=== PATIENT | female | born 1945 | race Caucasian/White ===

== ENCOUNTER → 2017-02-04 | Outpatient (CLI) | payer SELFPAY ==
[~2017-02-04] MED LIST: FEOSOL325 MG PO; FLEXERIL 10 MG10 MG PO; GLUCOPHAGE850 MG PO; KEFLEX500 MG PO; LASIX20 MG PO; LISINOPRIL5 MG PO; NEURONTIN 100100 MG PO; PIOGLITAZ-GLIM1 EACH PO; THERA-M CAPLET1 EAC1 PO; TYLENOL325 MG PO; VICTOZA 1818 MG/3 ML SC
[2017-02-04 10:15] LABS: BUN/CREATININE RATIO 21 (0-10)
== END ==
LOC: LAB 08:41
PROVIDERS: Family Medicine
DX: E11.319 Type 2 diabetes mellitus with unspecified diabetic retinopathy without macular edema (principal); E78.4 Other hyperlipidemia
CPT/HCPCS: 36415; 80053; 82043; 83036

== ENCOUNTER 2017-02-05 08:53 | Emergency (ER) | payer SELFPAY ==
[2017-02-05 12:45] LABS: HEMOGLOBIN 11.7 gm/dl (12.3-15.3); RED BLOOD COUNT 4.3 M/UL (4.00-5.10); WHITE BLOOD COUNT 3.1 K/UL (4.5-11.0)
[2017-02-05 13:10] LABS: BUN/CREATININE RATIO 23 (0-10)
== END 2017-02-05 20:20 | disposition home or self-care (01) ==
LOC: ER1 08:53 → ZEROF 18:08
PROVIDERS: Emergency Medicine
DX: J20.9 Acute bronchitis, unspecified (principal); E11.628 Type 2 diabetes mellitus with other skin complications; L03.116 Cellulitis of left lower limb; L03.115 Cellulitis of right lower limb; Z90.49 Acquired absence of other specified parts of digestive tract
CPT/HCPCS: 36415; 71020; 80053; 82550; 82553; 83690; 83874; 83880; 84484; 85025; 85610; 85730; 93005; 93970; 94664; 96365; 99284; J0696

== ENCOUNTER 2017-03-26 11:16 | Emergency (ER) | payer SELFPAY ==
[2017-03-26 12:41] LABS: HEMOGLOBIN 11.4 gm/dl (12.3-15.3); RED BLOOD COUNT 4.28 M/UL (4.00-5.10)
[2017-03-26 12:55] LABS: BUN/CREATININE RATIO 30 (0-10)
== END 2017-03-26 19:10 | disposition home or self-care (01) ==
LOC: ER1 11:16
PROVIDERS: Emergency Medicine
DX: E11.40 Type 2 diabetes mellitus with diabetic neuropathy, unspecified (principal); I89.0 Lymphedema, not elsewhere classified; Z79.899 Other long term (current) drug therapy
CPT/HCPCS: 36415; 73590; 75635; 80053; 85025; 86140; 87040; 93925; 93970; 96374; 96376; 99284; J2270; J7050; Q9963

== ENCOUNTER 2017-04-26 14:03 | Inpatient (IN) | payer MEDICARE, MEDICAID ==
[~2017-04-26] VITALS: Ht 157.5 cm; Wt 126.8 kg
[2017-04-26 15:11] LABS: HEMOGLOBIN 11.2 gm/dl (12.3-15.3); RED BLOOD COUNT 4.24 M/UL (4.00-5.10); WHITE BLOOD COUNT 4.3 K/UL (4.5-11.0)
[2017-04-26 15:34] LABS: BUN/CREATININE RATIO 28 (0-10)
[2017-04-27] MEDS ORDERED: NEURONTIN 100100 MG PO (05:09)
[2017-04-27] MEDS ORDERED: VICTOZA 1818 MG/3 ML SC (05:10)
[2017-04-27] MEDS ORDERED: PIOGLITAZ-GLIM1 EACH PO (05:11)
[2017-04-27] MEDS ORDERED: FLEXERIL 10 MG10 MG PO (05:12)
[2017-04-28 08:53] LABS: BUN/CREATININE RATIO 27 (0-10)
[2017-04-29 05:26] LABS: HEMOGLOBIN 9.6 gm/dl (12.3-15.3); RED BLOOD COUNT 3.75 M/UL (4.00-5.10); WHITE BLOOD COUNT 3.2 K/UL (4.5-11.0)
[2017-04-29 05:50] LABS: BUN/CREATININE RATIO 33 (0-10)
[2017-04-30] MEDS ORDERED: LASIX20 MG PO (18:48)
[2017-04-30] MEDS ORDERED: LISINOPRIL5 MG PO (18:48)
[2017-04-30] MEDS ORDERED: GLUCOPHAGE850 MG PO (18:49)
[2017-04-30] MEDS ORDERED: FEOSOL325 MG PO (18:49)
[2017-04-30] MEDS ORDERED: KEFLEX500 MG PO (18:49)
[2017-04-30] MEDS ORDERED: THERA-M CAPLET1 EAC1 PO (18:50)
[2017-04-30] MEDS ORDERED: TYLENOL325 MG PO (18:51)
== END 2017-04-30 19:31 | disposition home health service (06) | DRG 602 ==
LOC: ER1 14:03 → ZEROF 22:00 → PROG CARE 22:00 → M/S 22:00 → PROG CARE 04-27 05:05 → M/S 04-27 13:07
PROVIDERS: Emergency Medicine; Hospitalist; ADMIT Internal Medicine
DX: L03.116 Cellulitis of left lower limb (principal); I50.33 Acute on chronic diastolic (congestive) heart failure; Z68.43 Body mass index [BMI] 50.0-59.9, adult; C85.80 Other specified types of non-Hodgkin lymphoma, unspecified site; L03.115 Cellulitis of right lower limb; I11.0 Hypertensive heart disease with heart failure; E66.01 Morbid (severe) obesity due to excess calories; D50.9 Iron deficiency anemia, unspecified; D72.819 Decreased white blood cell count, unspecified; E11.9 Type 2 diabetes mellitus without complications; I87.2 Venous insufficiency (chronic) (peripheral); I87.8 Other specified disorders of veins; I89.0 Lymphedema, not elsewhere classified; M24.562 Contracture, left knee; M24.561 Contracture, right knee; Z92.3 Personal history of irradiation; Z79.84 Long term (current) use of oral hypoglycemic drugs; Z79.4 Long term (current) use of insulin; Z79.899 Other long term (current) drug therapy; Z88.6 Allergy status to analgesic agent; Z96.653 Presence of artificial knee joint, bilateral; Z98.890 Other specified postprocedural states; Z83.3 Family history of diabetes mellitus
CPT/HCPCS: 36415; 51702; 71010; 73590; 73700; 80048; 80053; 82550; 82553; 82962; 83605; 83874; 83880; 84484; 85025; 85027; 86140; 87040; 87081; 93005; 96365; 96366; 96367; 96372; 96375; 96376; 99285; J0696; J1650; J1815; J1817; J1940; J2270; J3370; J7030; J7070

== ENCOUNTER 2017-07-30 04:30 | Emergency (ER) | payer MEDICARE, MEDICAID ==
[2017-07-30 06:06] LABS: HEMOGLOBIN 12.3 gm/dl (12.3-15.3); RED BLOOD COUNT 4.64 M/UL (4.00-5.10); WHITE BLOOD COUNT 5.4 K/UL (4.5-11.0)
[2017-07-30 06:30] LABS: BUN/CREATININE RATIO 28 (0-10)
== END 2017-07-30 07:20 | disposition home or self-care (01) ==
LOC: ER1 04:30
PROVIDERS: Family Medicine
DX: J40 Bronchitis, not specified as acute or chronic (principal); E11.9 Type 2 diabetes mellitus without complications; Z90.49 Acquired absence of other specified parts of digestive tract
CPT/HCPCS: 36415; 71010; 80053; 85025; 94664; 99283